=== PATIENT | male | born 1995 | race Caucasian/White ===

== ENCOUNTER 2019-10-24 16:38 | Emergency (ER) | payer BC ==
[2019-10-24 17:06] VITALS: BP 118/79
--- NOTE | 2019-10-24 17:13 | UC ---
FLU HPI - HPI Summary HPI Summary: 24-year-old male who has fatigue, body aches, sore throat past 3 days. He's unsure if he had a fever. He states he "just feels drained" - History of Current Complaint Chief Complaint: UCGeneralIllness Stated Complaint: TONSIL ISSUE Time Seen by Provider: 10/24/19 16:56 Hx Obtained From: Patient Onset/Duration: Gradual Onset Severity Currently: Mild Severity Initially: Moderate Pain Intensity: 5 Associated Signs & Symptoms: Positive: Myalgia, Cough, Sore Throat, Nasal Congestion - Allergy/Home Medications Allergies/Adverse Reactions: Allergies Allergy/AdvReac Type Severity Reaction Status Date / Time No Known Allergies Allergy Verified 11/03/16 10:13 PMH/Surg Hx/FS Hx/Imm Hx Previously Healthy: Yes - Surgical History Surgical History: None - Family History Known Family History: Positive: Non-Contributory - Social History Occupation: Employed Full-time Alcohol Use: None Substance Use Type: None Smoking Status (MU): Never Smoked Tobacco Review of Systems All Other Systems Reviewed And Are Negative: Yes Constitutional: Positive: Fever, Chills, Fatigue ENT: Positive: Sore Throat, Nasal Discharge Respiratory: Positive: Cough Gastrointestinal: Positive: Diarrhea - Patient had diarrhea times one today., Nausea Musculoskeletal: Positive: Myalgia Is Patient Immunocompromised?: No Physical Exam Triage Information Reviewed: Yes Appearance: Well-Appearing, No Pain Distress, Well-Nourished Vital Signs: Initial Vital Signs Temp 99.3 F 10/24/19 17:00 Pulse 79 10/24/19 17:00 Resp 16 10/24/19 17:00 BP 118/79 10/24/19 17:00 Pulse Ox 97 10/24/19 17:00 Vital Signs Reviewed: Yes Eyes: Positive: Conjunctiva Clear ENT: Positive: Hearing grossly normal, Pharynx normal, TMs normal, Uvula midline Neck: Positive: Supple, Nontender, No Lymphadenopathy Respiratory: Positive: Lungs clear, Normal breath sounds, No respiratory distress, No accessory muscle use Cardiovascular: Positive: RRR, No Murmur, Pulses Normal, Brisk Capillary Refill Abdomen Description: Positive: Nontender, No Organomegaly, Soft. Negative: CVA Tenderness (R), CVA Tenderness (L), Distended, Guarding, Hepatomegaly, Splenomegaly Bowel Sounds: Positive: Present Musculoskeletal Exam: Normal Neurological Exam: Normal Psychological Exam: Normal Skin Exam: Normal Flu Course/Dx - Course Course Of Treatment: Rapid strep test: Negative Rapid flu test: Negative When I gave the patient the test results he stated he had a leftover antibiotic prescription at home and asked if he should take that I advised him not to because I believe at this point time this is a viral illness. He then requested further testing for any infection for which he was really unsure what he wanted to be tested for. He then requested STD testing so a urine specimen was obtained for that. He has the next 2 days off of work and I advised him to go home drink lots of fluids, rest and definitely go the ER if he has any worsening symptoms or see his doctor on Tuesday if no improvement. - Differential Dx/Diagnosis Provider Diagnosis: Pharyngitis Discharge ED - Sign-Out/Discharge Documenting (check all that apply): Patient Departure All imaging exams completed and their final reports reviewed: No Studies - Discharge Plan Condition: Good Disposition: HOME Patient Education Materials: Sexually Transmitted Diseases (ED), Pharyngitis ( ED) Referrals: Rishabh James MD [Primary Care Provider] - Additional Instructions: Go home and rest, increase fluids, Tylenol every 4 hours and may alternate with Motrin every 8 hours for body aches or fever. Definite follow-up with your primary care provider if no improvement in 2 or 3 days. If you have any worsening symptoms then go to the emergency room. We will call you with the urine results if they come back positive. - Billing Disposition and Condition Condition: GOOD Disposition: Home
[2019-10-24 17:24] LABS: Influenza A Molecular NEGATIVE (Negative); Influenza B Molecular NEGATIVE (Negative)
[2019-10-26 12:48] LABS: Chlamydia trachomatis NAA Negative (Negative); Neisseria gonorrhoeae (GC) NAA Negative (Negative)
== END 2019-10-24 17:50 | disposition home or self-care (01) ==
LOC: UCEAST 16:38
DX: J02.9 Acute pharyngitis, unspecified (principal); M79.10 Myalgia, unspecified site; R09.81 Nasal congestion; R19.7 Diarrhea, unspecified; R11.0 Nausea
CPT/HCPCS: 87491; 87591; 87651; 99211; G0463